=== PATIENT | female | born 1965 | race Two or more races ===

== ENCOUNTER → 2024-06-17 | Outpatient (CLI) | payer BC, SELFPAY ==
--- NOTE | 2024-06-17 10:10 | XR_ITS ---
Examination: Right knee 2 views Technique one AP lateral right knee 2 views Exam date and time: November 17, 2024 1016 hours INDICATIONS: Status post knee arthroplasty 7 weeks ago. FINDINGS: Moderate osteopenia. Total right knee arthroplasty with satisfactory alignment. No fracture. IMPRESSION: Total right knee arthroplasty with satisfactory alignment
== END | disposition home or self-care (01) ==
PROVIDERS: PCP Physician Assistant; Referring Provider Physician Assistant; Visit Provider Physician Assistant
DX: Z96.651 Presence of right artificial knee joint (principal); Z47.1 Aftercare following joint replacement surgery
CPT/HCPCS: 73560

== ENCOUNTER 2024-06-29 09:00 | Outpatient (RCR) | payer BC, SELFPAY ==
--- NOTE | 2024-06-10 09:02 | PTNOTE_ITS ---
PT OP Initial Eval Patient Information Outpatient Physical Therapy Treatment Date: 06/10/24 Visit Reasons: RT TKA Medical Diagnosis: [id number] Treatment Dx #1: R knee pain Treatment Dx #2: Dec R knee ROM Start of Care: 06/10/24 Date of Onset: 04/30/24 Smoking Status Smoking Status: Never smoker Initial Assessment Subjective: Pt is 59 yr old kiswahili speaking female s/p R TKA reports pain that limits bending the knee back and that she is ambulating HH and limited community distances with cane. She isn't doing HH chores currently due to the knee. PMH: x4, HTN, DM Pt goal: less pain, improved ROM Objective: R knee AROM: ? Flexion: 90 deg ? Extension: -3 deg ? SLR: ? 65 deg ? Strength: ? Quads and hamstrings 3+/5 ? Antalgic gait pattern with decreased WB tolerance Assessment: Pt presentation consistent with post op R TKA with decreased ROM, strength ? and WB tolerance. Pt lacks a few degrees of knee extension and flexion is limited by ? myofascial limitations and pain.? Pt requires skilled therapy to improve ROM ? and strength and has good rehab potential.? Eval followed by HEP with printout. Short Term and Half-Way Goals 1. Independent with HEP 2. Improved knee ROM to full extension to 120 deg flexion 3. Improved quad and hamstring strength to 4+/5 4. Improved ambulatory tolerance to community distances with symmetrical ?? gait pattern.??? Treatment Plan ? 1. Manual therapy ? 2. Therex ? 3. Modalities as indicated, moist heat, ice, estim Frequency and Duration: 2-3x a week for 18 Rx sessions Certification Dates: 06/10/24 to 09/10/24 Procedure Charges OP PT Eval Mod Complex 30 minutes: Yes
--- NOTE | 2024-06-12 15:48 | PT.ODAYNRPT ---
PT Outpatient Daily Note OP Daily Note Outpatient Physical Therapy Treatment Date: 06/12/24 Visit Reasons: RT TKA Subjective: Pt reports R knee is doing ok, still has pain and stiffness. As per pt she has been completing heel slides and knee flexion in sitting for HEP. Objective: Please see flow sheet for ther ex list. Assessment: Performed PROM into knee flexion, minimal guarding from pt allowing for increase range. Pt encouraged to continue with HEP and apply cold pack also, pt agreed. Plan: Continue with POC. Length of Time (minutes) of Treatment: 30 Minutes Procedure Charges Therapeutic Exercise 30 minutes: Yes
--- NOTE | 2024-06-15 11:26 | PT.ODAYNRPT ---
PT Outpatient Daily Note OP Daily Note Outpatient Physical Therapy Treatment Date: 06/15/24 Visit Reasons: RT TKA Subjective: Better able to bend the knee, using cane Objective: See F/S for therex MT: flexion PROM x7' with overpressure Assessment: Improved PROM R knee into flexion to about 106 deg today with overpressure Plan: Continue per POC Length of Time (minutes) of Treatment: 30 Minutes Procedure Charges Therapeutic Exercise 30 minutes: Yes
--- NOTE | 2024-06-17 08:42 | PT.ODAYNRPT ---
PT Outpatient Daily Note OP Daily Note Outpatient Physical Therapy Treatment Date: 06/17/24 Visit Reasons: RT TKA Subjective: Better able to bend the knee, and is using cane Objective: See F/S for therex MT: flexion PROM x7' with overpressure Assessment: Improved PROM R knee into flexion to about 112 deg today with overpressure Plan: Continue per POC Length of Time (minutes) of Treatment: 30 Minutes Procedure Charges Therapeutic Exercise 30 minutes: Yes
--- NOTE | 2024-06-22 14:06 | PT.ODAYNRPT ---
PT Outpatient Daily Note OP Daily Note Outpatient Physical Therapy Treatment Date: 06/22/24 Visit Reasons: RT TKA Subjective: Pt reports compliance with HEP. Objective: Please see flow sheet for ther ex list. Assessment: Performing knee flexion PROM within pt tolerance. Plan: Continue with POC. Length of Time (minutes) of Treatment: 30 Minutes Procedure Charges Therapeutic Exercise 30 minutes: Yes
--- NOTE | 2024-06-24 09:33 | PT.ODS1RPT ---
PT OP Progress/Discharge Note Date of Service: 06/24/24 Progress Note/DC Note Progress Note/Discharge Note: Progress Note Patient Information Visit Reasons: RT TKA Treatment Dx #1: R knee pain Treatment Dx #2: Dec R knee ROM Service Continue Service or Discharge: Continue Service Certification Date Certification Dates: 06/10/24 to 09/10/24 Status Subjective: Better able to bend the knee, and is not using cane today Objective: See F/S for therex MT: flexion PROM x7' with overpressure R knee ArOM: Extenion: full Flexion: 100 deg PROM: Flexion: 112 deg Gait: dec WB on R LE Assessment: Pt has attended the eval and 5 Rx sessions with good progress with improved PROM R knee into flexion to about 112 deg today with overpressure. She would benefit from continued therapy to meet goals. Plan: Continue per POC up to 18 Rx sessions if needed Goals Achieved: Procedure Charges OP PT Eval Mod Complex 30 minutes: Yes
--- NOTE | 2024-06-26 09:06 | PT.ODAYNRPT ---
PT Outpatient Daily Note OP Daily Note Outpatient Physical Therapy Treatment Date: 06/26/24 Visit Reasons: RT TKA Subjective: Pt reports knee still feels stiff, has follow up today with surgeon. Objective: Please see flow sheet for ther ex list. Assessment: Pt highly guarded during PROM resulting in poor range into knee flexion. Plan: Continue with pOC. Length of Time (minutes) of Treatment: 30 Minutes Procedure Charges Therapeutic Exercise 30 minutes: Yes
--- NOTE | 2024-06-29 10:44 | PT.ODAYNRPT ---
PT Outpatient Daily Note OP Daily Note Outpatient Physical Therapy Treatment Date: 06/29/24 Visit Reasons: RT TKA Subjective: Overall better but still limps Objective: See F/S for therex Assessment: Pt ambulates with decreased WB on R LE Plan: Continue per POC Length of Time (minutes) of Treatment: 30 Minutes Procedure Charges Therapeutic Exercise 30 minutes: Yes
== END 2024-06-29 23:59 | disposition home or self-care (01) ==
LOC: CPTX 09:00
PROVIDERS: PCP Orthopaedic Surgery; Referring Provider Orthopaedic Surgery; Visit Provider Orthopaedic Surgery
DX: M25.561 Pain in right knee (principal); Z96.651 Presence of right artificial knee joint; I10 Essential (primary) hypertension; E11.9 Type 2 diabetes mellitus without complications
CPT/HCPCS: 97110; 97162

== ENCOUNTER 2024-07-29 08:30 | Outpatient (RCR) | payer BC, SELFPAY ==
--- NOTE | 2024-07-01 12:47 | PT.ODAYNRPT ---
PT Outpatient Daily Note OP Daily Note Outpatient Physical Therapy Treatment Date: 07/01/24 Visit Reasons: Right TKA Subjective: Overall better but still limps Objective: See F/S for therex MT: PROM into flexion x7' Assessment: Pt ambulates with decreased WB on R LE but that has improved since starting therapy Plan: Continue per POC Length of Time (minutes) of Treatment: 30 Minutes Procedure Charges Therapeutic Exercise 30 minutes: Yes
--- NOTE | 2024-07-06 10:06 | PT.ODAYNRPT ---
PT Outpatient Daily Note OP Daily Note Outpatient Physical Therapy Treatment Date: 07/06/24 Visit Reasons: Right TKA Subjective: Overall better but still limps attributed to calcaneal spur. Wonders if she should not use the cane anymore. Objective: See F/S for therex Assessment: Pt ambulates with decreased WB on R LE with heel pain but that has improved since starting therapy. Plan: Continue per POC Procedure Charges Therapeutic Exercise 30 minutes: Yes
--- NOTE | 2024-07-09 11:59 | PT.ODAYNRPT ---
PT Outpatient Daily Note OP Daily Note Outpatient Physical Therapy Treatment Date: 07/09/24 Visit Reasons: Right TKA Subjective: Overall better but still limps attributed to calcaneal spur. Using the cane less than before. Objective: See F/S for therex Assessment: Pt ambulates with decreased WB on R LE with heel pain but that has improved since starting therapy. Plan: Continue per POC Length of Time (minutes) of Treatment: 30 Minutes Procedure Charges Therapeutic Exercise 30 minutes: Yes
--- NOTE | 2024-07-13 10:51 | PT.ODAYNRPT ---
PT Outpatient Daily Note OP Daily Note Outpatient Physical Therapy Treatment Date: 07/13/24 Visit Reasons: Right TKA Subjective: Overall better but still limps attributed to calcaneal spur. Using the cane less than before. Objective: See F/S for therex Assessment: Pt ambulates with decreased WB on R LE with heel pain but that has improved since starting therapy. Full extension ROM of R knee Plan: Continue per POC Length of Time (minutes) of Treatment: 30 Minutes Procedure Charges Therapeutic Exercise 30 minutes: Yes
--- NOTE | 2024-07-15 10:42 | PT.ODAYNRPT ---
PT Outpatient Daily Note OP Daily Note Outpatient Physical Therapy Treatment Date: 07/15/24 Visit Reasons: Right TKA Subjective: Overall better but still limps attributed to calcaneal spur. Using the cane less than before. Objective: See F/S for therex MT: PPM into flexion x5' Assessment: Pt ambulates with decreased WB on R LE with heel pain but that has improved since starting therapy. Full extension ROM of R knee. PROM into flexion 113 deg with overpressure. Plan: Continue per POC Length of Time (minutes) of Treatment: 30 Minutes Procedure Charges Therapeutic Exercise 30 minutes: Yes
--- NOTE | 2024-07-20 11:49 | PT.ODAYNRPT ---
PT Outpatient Daily Note OP Daily Note Outpatient Physical Therapy Treatment Date: 07/20/24 Visit Reasons: Right TKA Subjective: Overall better but still limps attributed to calcaneal spur. Using the cane less than before. Objective: See F/S for therex MT: PPM into flexion x5' Assessment: Pt ambulates with decreased WB on R LE with heel pain but that has improved since starting therapy. Full extension ROM of R knee. PROM into flexion 113 deg with overpressure. Plan: Continue per POC Length of Time (minutes) of Treatment: 30 Minutes Procedure Charges Therapeutic Exercise 30 minutes: Yes
--- NOTE | 2024-07-23 10:35 | PT.ODAYNRPT ---
PT Outpatient Daily Note OP Daily Note Outpatient Physical Therapy Treatment Date: 07/23/24 Visit Reasons: Right TKA Subjective: Overall better but still limps now attributed to tightness in anterior knee. She is not using the cane Objective: See F/S for therex Assessment: Pt ambulates with decreased WB on R LE with heel pain but that has improved since starting therapy. Full extension ROM of R knee. PROM into flexion 113 deg with overpressure. Plan: Continue per POC Length of Time (minutes) of Treatment: 30 Minutes Procedure Charges Therapeutic Exercise 30 minutes: Yes
--- NOTE | 2024-07-27 11:25 | PT.ODAYNRPT ---
PT Outpatient Daily Note OP Daily Note Outpatient Physical Therapy Treatment Date: 07/27/24 Visit Reasons: Right TKA Subjective: Overall better but still limps now attributed to tightness and swelling in anterior knee. She is not using the cane Objective: See F/S for therex MT: STM distal lateral quads x5' Assessment: Pt has edema in distal lateral quads that is not TTP. Full extension ROM of R knee. PROM into flexion 113 deg with overpressure. Plan: Continue per POC Length of Time (minutes) of Treatment: 30 Minutes Procedure Charges Therapeutic Exercise 30 minutes: Yes
--- NOTE | 2024-07-29 09:18 | PT.ODAYNRPT ---
PT Outpatient Daily Note OP Daily Note Outpatient Physical Therapy Treatment Date: 07/29/24 Visit Reasons: Right TKA Subjective: Overall better but still limps now attributed to tightness and swelling in anterior knee. She is not using the cane Objective: See F/S for therex MT: STM distal lateral quads x5' Assessment: Pt has edema in distal lateral quads that is not TTP. Full extension ROM of R knee. PROM into flexion 113 deg with overpressure. Plan: Continue per POC Length of Time (minutes) of Treatment: 30 Minutes Procedure Charges Therapeutic Exercise 30 minutes: Yes
== END 2024-07-29 23:59 | disposition home or self-care (01) ==
LOC: CPTX 08:30
PROVIDERS: PCP Orthopaedic Surgery; Referring Provider Orthopaedic Surgery; Visit Provider Orthopaedic Surgery
DX: M25.561 Pain in right knee (principal); Z96.651 Presence of right artificial knee joint
CPT/HCPCS: 97110

== ENCOUNTER 2024-08-05 08:30 | Outpatient (RCR) | payer BC, SELFPAY ==
--- NOTE | 2024-08-03 09:21 | PT.ODAYNRPT ---
PT Outpatient Daily Note OP Daily Note Outpatient Physical Therapy Treatment Date: 08/03/24 Visit Reasons: RT TKA Subjective: Overall better but still limps now attributed to tightness and swelling in anterior knee. She is not using the cane Objective: See F/S for therex Assessment: Pt has edema in distal lateral quads that is not TTP. Full extension ROM of R knee. PROM into flexion 110 deg with overpressure. Plan: Reassess Length of Time (minutes) of Treatment: 30 Minutes Procedure Charges Therapeutic Exercise 30 minutes: Yes
--- NOTE | 2024-08-05 16:27 | PT.ODS1RPT ---
PT OP Progress/Discharge Note Date of Service: 08/05/24 Progress Note/DC Note Progress Note/Discharge Note: DC Note Patient Information Visit Reasons: RT TKA Service Continue Service or Discharge: Discharge Status Subjective: Overall better but still limps now attributed to tightness in anterior knee and unaffected knee. She is not using the cane Objective: See F/S for therex R knee ArOM: Extension: full Flexion: 100 deg PROM: Flexion: 112 deg Gait: more symmetrical Strength: Quads and HS: 4+/5 Assessment: Pt has attended visits with good progress with therapy goals. Pt has improved knee ROM to full extension to meet that goal. Pt is independent with HEP and quad and HS strength has improved to 4+/5 to meet those goals. Pt has edema in distal lateral quads that is not TTP. PROM into flexion is 112 deg with overpressure. She has not met ambulatory tolerance toal to symmetrical pattern due to unaffected knee pain. Plan: D/C with HEP Procedure Charges Therapeutic Exercise 30 minutes: Yes
== END 2024-08-29 23:59 | disposition home or self-care (01) ==
LOC: CPTX 08:30
PROVIDERS: PCP Orthopaedic Surgery; Referring Provider Orthopaedic Surgery; Visit Provider Orthopaedic Surgery
DX: M25.561 Pain in right knee (principal); Z96.651 Presence of right artificial knee joint; I10 Essential (primary) hypertension; E11.9 Type 2 diabetes mellitus without complications
CPT/HCPCS: 97110

== ENCOUNTER → 2024-08-12 | Outpatient (CLI) | payer BC, SELFPAY ==
--- NOTE | 2024-08-12 13:00 | XR_ITS ---
Examination: Screening digital mammography, bilateral Computer aided detection 3-D breast Tomosynthesis, bilateral Date and time of exam: August 12, 2024 1251 hours Compared to mammograms dating to May 01, 2019 Indication: Screening Technique: Nonmagnified MLO, CC views of the breasts to been obtained, reconstructed from 3-D Tomosynthesis images. R2 computer aided detection program utilized for evaluation of suspicious masses and/or abnormal calcifications. 3-D Tomosynthesis images obtained. Findings: Scattered areas of fibroglandular density. Benign calcifications. No interval suspicious masses Impression: BI-RADS category II: Benign Findings. Recommend 1 year follow-up mammogram.
== END | disposition home or self-care (01) ==
LOC: CDIM 12:43
PROVIDERS: PCP Physician Assistant; Referring Provider Physician Assistant; Visit Provider Physician Assistant
DX: Z12.31 Encounter for screening mammogram for malignant neoplasm of breast (principal); R92.323 Mammographic fibroglandular density, bilateral breasts; R92.1 Mammographic calcification found on diagnostic imaging of breast
CPT/HCPCS: 77063; 77067